=== PATIENT | female | born 1965 | race Caucasian/White ===

== ENCOUNTER 2017-11-03 10:22 | Observation (INO) | payer SELFPAY ==
[~2017-11-03 10:22] MED LIST: Iopamidol 370 76% 100 ML VIAL ONE
[2017-11-03] MEDS ORDERED: Mag-Al Plus 1200 MG/1200 MG/120 MG/30 ML UDCUP ONE (10:56)
[2017-11-03] MEDS ORDERED: Lidocaine Viscous Sol 2% 15 ml UD Cup ONE (10:57)
[2017-11-03 10:58] LABS: #Eosinphils 0.1 thou/uL (0.0-0.7); #Lymphocytes 1.8 thou/uL (1.20-3.40); #Monocytes 0.5 thou/uL (0.11-0.59); #Neutrophils 3.8 thou/uL (1.40-6.50); %Basophils 0.8 % (0.0-1.0); %Eosinophils 1.5 % (0.0-10.0); %Lymphocytes 28.6 % (21.0-51.0); %Monocytes 7.9 % (0.0-10.0); %Neutrophils 61.3 % (42.0-75.0); Hemoglobin 14.2 g/dL (12.0-16.0); Mean Corpuscular Hemoglobin 31.2 pg (27.0-31.0); Mean Corpuscular Volume 91.8 fl (81.0-99.0); Mean Platelet Volume 9.4 fL (7.4-10.4); Platelet Count 268 thou/uL (130-400); RBC Distribution Width 11.8 % (11.5-14.5); Red Blood Cell (RBC) Count 4.56 mill/uL (4.20-5.40); White Blood Cell (WBC) Count 6.3 thou/uL (4.8-10.8)
[2017-11-03] MEDS ORDERED: Nitroglycerin 0.4 MG TAB (25 Tab Bottle) ONE (10:58)
[2017-11-03 11:12] LABS: ALT (SGPT) 47 U/L (8-55); AST (SGOT) 38 U/L (5-34); Albumin 4.2 g/dL (3.5-5.0); Alkaline Phosphatase 84 U/L (40-150); Anion Gap 13 mmol/L (10-20); BUN (Urea Nitrogen) 9 mg/dL (9.8-20.1); Bilirubin, Total 0.6 mg/dL (0.2-1.2); Calc. Creatinine Clearance 0 mL/min (70-130); Calcium 9.7 mg/dL (7.8-10.44); Carbon Dioxide 26 mmol/L (22-29); Chloride 104 mmol/L (98-107); Estimated GFR-MDRD 74; Globulin 3.6 g/dL (2.4-3.5); Glucose 106 mg/dL (70-105); Potassium 3.7 mmol/L (3.5-5.1); Protein, Total 7.8 g/dL (6.0-8.3); Sodium 139 mmol/L (136-145)
[2017-11-03] MEDS ORDERED: Pantoprazole 40 MG VIAL ONE (11:12)
[2017-11-03 11:13] LABS: CKMB 1.3 ng/mL (0-6.6); Troponin I Less than 0.010 ng/mL (< 0.028)
[2017-11-03] MEDS ORDERED: Ketorolac Tromethamine 30 MG/ML VIAL ONE (11:23)
--- NOTE | 2017-11-03 12:14 | RAD ---
SEMIUPRIGHT FRONTAL CHEST RADIOGRAPH: Date: 11/03/17 COMPARISON: 12/14/14. HISTORY: Cramping pain across the top of the chest with radiation to the left. FINDINGS: There is no pneumothorax or pleural fluid, and no focal consolidation or alveolar edema. Heart and me diastinal contours are grossly unremarkable. Osseous structures demonstrate no acute findings. IMPRESSION: No acute findings. POS: [facility]
--- NOTE | 2017-11-03 13:00 | CT ---
CHEST CT ANGIOGRAM WITH 3D RENDERING: Date: 11/03/17 HISTORY: 51-year-old female with chest pain, cramping-type pain across top of chest. FINDINGS: No significant CT evidence for acute pulmonary embolism. No evidence for aortic aneurysm or dissectio n. There are some scattered up to borderline size mediastinal lymph nodes without overt adenopathy. N o pleural effusion or pericardial effusion. Minimal chronic bullous changes are noted, primarily in t he upper lung zones. IMPRESSION: Chronic bullous changes and some biapical pleural thickening, evidence for chronic lung change. No si gnificant CT evidence for acute pulmonary embolism. No evidence for aortic aneurysm or dissection, or other significant acute process. POS: [facility]
[2017-11-03 13:46] VITALS: BMI 32.5
[2017-11-03 13:48] VITALS: TEMP 98.2
[2017-11-03] MEDS ORDERED: Ondansetron ODT 4 MG TAB SL PRN (14:17)
[2017-11-03] MEDS ORDERED: Ondansetron HCl/PF 4 MG/2 ML Vial IVP PRN (14:17)
[2017-11-03] MEDS ORDERED: Acetaminophen 325 MG TAB PO PRN (14:17)
[2017-11-03] MEDS ORDERED: Ketorolac Tromethamine 30 MG/ML VIAL IVP PRN (14:18)
[2017-11-03] MEDS ORDERED: Nitroglycerin 0.4 MG TAB 1 EACH SL PRN (14:19)
[2017-11-03 14:35] LABS: CKMB 3.1 ng/mL (0-6.6); Troponin I 0.073 ng/mL (< 0.028)
[2017-11-03 17:55] LABS: CKMB 6.8 ng/mL (0-6.6); Troponin I 0.346 ng/mL (< 0.028)
[2017-11-03 18:13] VITALS: BP 127/80
[2017-11-03] MEDS ORDERED: Sodium Chloride 0.9% 10 ML ONE (18:13)
[2017-11-03] MEDS ORDERED: Nitroglycerin 2% Ointment 1 INCH/1 GM Packet TOP SCH (18:45)
[2017-11-03] MEDS ORDERED: Enoxaparin Sodium 100 MG/ML SYRINGE SC SCH (18:45)
--- NOTE | 2017-11-04 12:35 | HP ---
DATE OF ADMISSION: 11/04/2017 HISTORY OF PRESENT ILLNESS: The patient is a 51-year-old white female that presented to the emergenc y room at [facility] with chest pain. She was seen by the ER physician and her initi al troponin was 0.02. She was thought to have musculoskeletal type pain, but Dr. Chua felt that she would be placed in for observation because of her risk factors with family history and history of sm oking. The patient was admitted to the hospital, but before I was able to see her, her troponin increased to 0.3 and 0.7. Discussed with the nurses and nurses states that she went back and check on her and jordan mathis states she started having a little bit more chest pain again which started about an hour ago, b ut she did not want tele nurses to upset their schedule. The patient was then emergently transferred to [facility] in [place] for cardiac evaluation for impending possible non-STEMI. PAST MEDICAL HISTORY: Reveals patient has a history of: 1. Hypertension. 2. Hyperlipidemia. 3. Muscle spasms. 4. Insomnia. PAST SURGICAL HISTORY: The patient has prior surgical history of, 1. . 2. Appendectomy. 3. Right-sided ovary removed with ectopic . ALLERGIES: Reveals the patient is allergic to CODEINE. The patient also has a possible allergy to M ORPHINE. MEDICATIONS: Reveal the patient is presently on the followin. Amlodipine 10 mg daily. 2. Lovastatin 20 mg daily. 3. Trazodone 50 mg at bedtime p.r.n. FAMILY HISTORY: Positive for coronary artery disease. The patient even has a sibling with coronary artery disease and pacemaker. REVIEW OF SYSTEMS: Reveals patient denies any prior fever or chills. The patient denies any signifi cant upper respiratory problems including cough, cold, congestion or wheezing. The patient denies an y palpitations, any shortness of breath, just a midsternal to left-sided chest pain. The patient den ies any nausea, vomiting, diarrhea or constipation. The patient denies any significant arthritis. PHYSICAL EXAMINATION: Physical exam is not done secondary to patient being gone when I arrived. ASSESSMENT: 1. Chest pain with increasing troponin. 2. History of hypertension. 3. History of hyperlipidemia. 4. Strong family history of coronary artery disease along with pacemaker in a sibling. 5. History of mitral valve prolapse. PLAN: The patient will be transferred emergently to [facility] in [place] for cardia c evaluation and possible catheterization.
== END 2017-11-03 19:00 | disposition short-term general hospital (02) ==
LOC: NAV ERS 10:22 → NAV ACUTE 13:30
PROVIDERS: ADMIT Family Medicine; ATTEND Family Medicine
DX: R07.9 Chest pain, unspecified (principal); R79.89 Other specified abnormal findings of blood chemistry; I10 Essential (primary) hypertension; E78.5 Hyperlipidemia, unspecified; I34.1 Nonrheumatic mitral (valve) prolapse; G47.00 Insomnia, unspecified; F17.200 Nicotine dependence, unspecified, uncomplicated; Z88.5 Allergy status to narcotic agent; Z91.018 Allergy to other foods; Z79.899 Other long term (current) drug therapy; Z90.49 Acquired absence of other specified parts of digestive tract; Z90.721 Acquired absence of ovaries, unilateral; Z98.891 History of uterine scar from previous surgery; Z87.59 Personal history of other complications of pregnancy, childbirth and the puerperium; Z82.49 Family history of ischemic heart disease and other diseases of the circulatory system
CPT/HCPCS: 36415; 71045; 71275; 80053; 82553; 83880; 84484; 85025; 85379; 93005; 96372; 96374; 96375; 96376; A4216; C9113; G0378; J1650; J1885